=== PATIENT | male | born 1985 | race Caucasian/White ===

== ENCOUNTER 2021-10-08 14:54 | Emergency (ER) | payer BC ==
[2021-10-08] MEDS ORDERED: Ketorolac 30 MG/ML SDV IM ONE (15:51)
[2021-10-08] MEDS ORDERED: Ketorolac 30 MG/ML SDV ONE (16:02)
== END 2021-10-08 16:40 | disposition home or self-care (01) ==
LOC: LB.ED 14:54
DX: M54.89 Other dorsalgia (principal)
CPT/HCPCS: 36415; 74176; 80048; 81003; 85025; 96372; 99284-25; J1885